=== PATIENT | female | born 1965 | race Caucasian/White ===

== ENCOUNTER 2019-03-17 21:28 | Emergency (ER) | payer MEDICAID ==
[2019-03-17] MEDS: KETOROLAC 30 MG INJ IM (22:38)
== END 2019-03-17 23:25 | disposition home or self-care (01) ==
LOC: FTE 23:25
DX: S99.912A Unspecified injury of left ankle, initial encounter (principal); E11.9 Type 2 diabetes mellitus without complications; W01.0XXA Fall on same level from slipping, tripping and stumbling without subsequent striking against object, initial encounter; Y92.89 Other specified places as the place of occurrence of the external cause; Z79.84 Long term (current) use of oral hypoglycemic drugs
CPT/HCPCS: 73562; 73590; 73610; 73630-LT; 96372; 99284-25